=== PATIENT | female | born 1995 | race Two or more races ===

== ENCOUNTER → 2016-08-02 | Day surgery (SDC) | payer OTHER ==
[~2016-08-02] VITALS: Ht 152.4 cm; Wt 106.8 kg
[~2016-08-02] MED LIST: ADVIL200 MG PO; GLUCOPHAGE500 MG PO; PRINIVIL (ZESTRI5 MG PO
--- NOTE | ~2016-08-02 | OR ---
PATIENT'S NAME: MANDY HERNANDEZ [facility] AGE: 21 Y [address] ROOM: [place] [address] LOCATION: [facility] [place] ADMIT DATE: 08/02/2016 OR/Procedure Report DISCHARGE DATE: FAMILY PHYSICIAN: MEI FOOTE MD ATTENDING PHYSICIAN: Monet Serrano SURGEON: Monet Serrano MD SLAG WHEELER: None. DATE OF PROCEDURE: 08/02/2016 PREOPERATIVE DIAGNOSES: 1. Menometrorrhagia. 2. Polycystic ovarian disease. POSTOPERATIVE DIAGNOSES: 1. Menometrorrhagia. 2. Polycystic ovarian disease. PROCEDURES PERFORMED: 1. Diagnostic hysteroscopy. 2. Fractional dilatation and curettage. ANESTHESIA: General endotracheal. BLOOD LOSS: Minimal. COMPLICATIONS: None. DESCRIPTION OF PROCEDURE: The patient was taken to the operating room and placed under general endotracheal anesthetic. Her legs were placed in the candy-cane stirrups. She was tipped in Trendelenburg. She was prepped and draped, and her bladder was drained. A weighted speculum was placed. The anterior lip of the cervix was grasped with a single-toothed tenaculum. The endocervical curettage was performed and sent to pathology. The cervix was sequentially dilated. The hysteroscope was then placed with attached camera. 1.5% glycine was used as the distention medium. Multiple small polypoid structures were noted throughout the entire uterus. I performed a good endocervical curettage and polypectomy at that point. More curettage was then performed. The uterus was clear at that time. The patient tolerated the procedure well with 20 mL of deficit. The single-toothed tenaculum was removed. The instruments were removed. Silver nitrate was used on the anterior lip of the cervix. The patient tolerated the procedure well and went to Recovery in good condition. PATIENT'S NAME: MANDY HERNANDEZ [facility] AGE: 21 Y [address] ROOM: [place] [address] LOCATION: [facility] [place] ADMIT DATE: 08/02/2016 OR/Procedure Report DISCHARGE DATE: FAMILY PHYSICIAN: MEI FOOTE MD ATTENDING PHYSICIAN: Monet Serrano MONET H MD ERIN SERRANOP/modl /[id number] CC: Mei Foote MD d: 08/02/16 1504 t: 08/05/16 1801, OPERATIVE SUMMARY
--- NOTE | ~2016-08-02 | HP ---
PATIENT'S NAME: MANDY HERNANDEZ [facility] AGE: 21 Y [address] ROOM: [place] [address] LOCATION: [facility] [place] ADMIT DATE: 08/02/2016 History & Physical DISCHARGE DATE: FAMILY PHYSICIAN: MEI FOOTE MD ATTENDING PHYSICIAN: Monet Serrano DATE OF SERVICE: HISTORY OF PRESENT ILLNESS: This is a 21-year-old, zero who presents for a hysteroscopy and D and C. She has a long history of menorrhagia and menometrorrhagia. She has had a D and C before [place]. She has had numerous ultrasounds and treatment with control pills and Depo-Provera. Currently, she is doing best on the Depo-Provera but has started having some bleeding here recently. Her hemoglobin has not dropped to an anemic level at this point. Because of her obesity and her polycystic ovarian disease, I feel that it is time to sample the endometrium again and get a good exam. The patient does not tolerate an exam at all in the office. CURRENT MEDICATIONS: 1. Lisinopril 20 mg a day. 2. Metformin 500 mg twice a day. 3. Ibuprofen. 4. Depo-Provera. ALLERGIES: HYDROCODONE CAUSES NAUSEA AND VOMITING. MORPHINE CAUSES NAUSEA AND VOMITING. OPERATIONS: She has had a D and C in the past. PHYSICAL EXAMINATION: LUNGS: Clear. HEART: Regular rate and rhythm. ABDOMEN: Gravid. IMPRESSION: 1. Long history of menometrorrhagia with resultant anemia. 2. Polycystic ovarian disease. 3. Obesity. 4. Hypertension. 5. Diabetes. PLAN: We will proceed with hysteroscopy and D and C. The patient understands the PATIENT'S NAME: MANDY HERNANDEZ [facility] AGE: 21 Y [address] ROOM: [place], [place] [address] LOCATION: [facility] [place] ADMIT DATE: 08/02/2016 History & Physical DISCHARGE DATE: FAMILY PHYSICIAN: MEI FOOTE MD ATTENDING PHYSICIAN: Monet Serrano surgical risks to include, but not limited to, bleeding, transfusion, infection, injury to other organs, and need for additional surgery. Appropriate consents are signed and witnessed. The patient's questions are answered. MONET H MD LAW SERRANO/modl /[id number] CC: Mei Foote MD D: [id number] T: [id number] HISTORY & PHYSICAL
[2016-08-02 06:52] LABS: BASOPHIL % 0.5 %; EOSINOPHIL # 0.2 K/uL (0.0-0.5); HEMATOCRIT 38.4 % (33.0-46.0); HEMOGLOBIN 12.9 g/dL (11.0-15.0); IMMATURE GRANULOCYTE % 0.3 %; LYMPHOCYTE # 2.1 K/uL (0.8-4.0); LYMPHOCYTE % 27.7 %; MCH 28.1 pg (27.0-34.0); MCHC 33.6 gm/dL (32.0-36.5); MCV 83.7 fl (83.0-98.0); MONOCYTE # 0.5 K/uL (0.0-1.0); MONOCYTE % 7.1 %; MPV 9.1 fl (9.4-12.4); NEUTROPHIL # (ANC) 4.7 K/uL (1.8-7.8); NEUTROPHIL % 62.4 %; NRBC % 0 /100WBC (0-0.00); PLATELET COUNT 466 K/uL (150-450); RDW-CV 13.4 % (11.9-14.6); WBC 7.5 K/uL (4.0-11.0)
[2016-08-02 06:53] LABS: RBC 4.59 M/uL (3.50-5.00)
== END | disposition disaster alternative care site (69) ==
LOC: GPOC 07-27 08:00 → GSDC 06:08
PROVIDERS: Obstetrics & Gynecology
PROC: 0UB98ZX Excision of Uterus, Via Natural or Artificial Opening Endoscopic, Diagnostic (ICD-10-PCS; principal; 2016-08-02)
PROC: 0UDB8ZX Extraction of Endometrium, Via Natural or Artificial Opening Endoscopic, Diagnostic (ICD-10-PCS; 2016-08-02)
DX: N85.8 Other specified noninflammatory disorders of uterus (principal); E28.2 Polycystic ovarian syndrome; N84.0 Polyp of corpus uteri; E11.9 Type 2 diabetes mellitus without complications; F41.9 Anxiety disorder, unspecified; F32.9 Major depressive disorder, single episode, unspecified; I10 Essential (primary) hypertension; E66.9 Obesity, unspecified; Z79.899 Other long term (current) drug therapy; Z98.890 Other specified postprocedural states; Z88.5 Allergy status to narcotic agent
CPT/HCPCS: J2001; J2405; J3010; J7030